=== PATIENT | male | born 1940 | race Caucasian/White ===

== ENCOUNTER 2016-05-04 13:05 | Inpatient (IN) | payer OTHER ==
[~2016-05-04] VITALS: Ht 182.9 cm; Wt 71.3 kg
[~2016-05-04 13:05] MED LIST: ADVAIR 250/501 DISK IH; ANTIVERT25 MG PO; CIPRO500 MG PO; FLAGYL500 MG PO; MIRALAX255 GM PO; NO HOME MEDS; NOHOMEMEDS; PERCOCET 5/31 TABLET PO; Proventil,Ventolin H IH; TYLENOL WITH C1 EACH PO; Zithromax PO; predniSONE PO
[2016-05-04 14:02] LABS: BASOPHIL COUNT 0.1 K/uL (0-0.1); EOSINOPHIL (%) 3.9 % (0-5); EOSINOPHIL COUNT 0.3 K/uL (0-0.3); HEMATOCRIT 43.1 % (38.0-50.0); IMMATURE GRANULOCYTE (%) 0.1 % (0.0-0.7); IMMATURE GRANULOCYTE COUNT 0.1 K/uL; LYMPHOCYTE COUNT 1.1 K/uL (1.0-2.8); MCHC 33.9 G/DL (30.0-36.0); MCV 88.5 FL (86-99); MEAN PLAT.VOLUME 9.8 uM^3 (9.0-12.4); MONOCYTE (%) 10.3 % (3-12); MONOCYTE COUNT 0.7 K/uL (0-0.8); PLATELET COUNT 181 K/uL (156-360); RBC DIS.WIDTH-CV 13.5 % (11.8-14.6); RBC DIS.WIDTH-SD 43.5 % (39-53); RED BLOOD COUNT 4.87 M/uL (4.00-5.50); WHITE BLOOD COUNT 7.1 K/uL (4.1-10.2)
[2016-05-04 14:11] LABS: CHLORIDE 106 mEq/L (99-109); POTASSIUM 4.2 mEq/L (3.7-5.4); SODIUM 137 mEq/L (136-147)
[2016-05-04 14:13] LABS: GLUCOSE 109 mg/dL (70-99)
[2016-05-04 14:14] LABS: ANION GAP 7 MEQ/L (2-14)
[2016-05-04 14:15] LABS: TOTAL BILIRUBIN 0.6 mg/dL (0.0-1.0)
[2016-05-04 14:17] LABS: ALKALINE PHOSPHATASE 76 IU/L (3-129); GFR ESTIMATE (CALCULATED) > 59 mL/min/
[2016-05-04 14:18] LABS: UREA NITROGEN (BUN) 12 mg/dL (9-23)
[2016-05-04 14:20] LABS: LIPASE 10 U/L (1.0-51.0)
[2016-05-04 14:23] LABS: TROP-I INTERPRETATION NEGATIVE; TROPONIN-I < 0.01 ng/mL (0.0-0.30)
[2016-05-04 18:08] LABS: ADD MIUA? NO; BILIRUBIN NEGATIVE; BLOOD NEGATIVE; COLOR YELLOW ((YELLOW)); GLUCOSE (STRIP) NEGATIVE; KETONES 5; LEUKOCYTES NEGATIVE; NITRITE NEGATIVE; PROTEIN (STRIP) NEGATIVE; UCUL ADDED? NO; UROBILINOGEN 0.2 MG/DL (0.2-1.0)
[2016-05-04 18:25] LABS: SPECIFIC GRAVITY 1.058 (1.000-1.030)
[2016-05-04] MEDS ORDERED: CILOSTAZOL50 MG PO (20:21)
[2016-05-05] VITALS (7 sets, daily range): BP systolic 128–158; BP diastolic 57–69
[2016-05-05 10:21] LABS: ADD MIUA? NO; BILIRUBIN NEGATIVE; BLOOD NEGATIVE; COLOR YELLOW ((YELLOW)); GLUCOSE (STRIP) NEGATIVE; KETONES 5; LEUKOCYTES NEGATIVE; NITRITE NEGATIVE; PROTEIN (STRIP) NEGATIVE; SPECIFIC GRAVITY 1.017 (1.000-1.030); UCUL ADDED? NO; UROBILINOGEN 0.2 MG/DL (0.2-1.0)
[2016-05-06 04:33] VITALS: BP 135/63
[2016-05-06 05:49] LABS: ANION GAP 9 MEQ/L (2-14); CHLORIDE 103 MEQ/L (99-109); GFR ESTIMATE (CALCULATED) > 59 mL/min/; GLUCOSE 102 mg/dL (70-99); SAMPLE HEMOLYSIS CHECK 0; SAMPLE ICTERIC CHECK 0; SAMPLE LIPEMIA CHECK 0; SODIUM 135 MEQ/L (136-147); UREA NITROGEN (BUN) 9 mg/dL (9-23)
[2016-05-06 06:13] LABS: BASOPHIL COUNT 0.1 K/uL (0-0.1); EOSINOPHIL (%) 2.6 % (0-5); EOSINOPHIL COUNT 0.3 K/uL (0-0.3); HEMATOCRIT 40.3 % (38.0-50.0); IMMATURE GRANULOCYTE (%) 0.2 % (0.0-0.7); LYMPHOCYTE COUNT 1.6 K/uL (1.0-2.8); MCH 29.1 PG (29.0-34.0); MCV 88.2 FL (86-99); MEAN PLAT.VOLUME 10.2 uM^3 (9.0-12.4); MONOCYTE (%) 12.6 % (3-12); MONOCYTE COUNT 1.2 K/uL (0-0.8); NEUTROPHIL (%) 67.1 % (45-76); NEUTROPHIL COUNT 6.4 K/uL (1.8-6.4); PLATELET COUNT 200 K/uL (156-360); RBC DIS.WIDTH-CV 13.4 % (11.8-14.6); RBC DIS.WIDTH-SD 43.2 % (39-53); RED BLOOD COUNT 4.57 M/uL (4.00-5.50)
[2016-05-06 06:15] LABS: WHITE BLOOD COUNT 9.5 K/uL (4.1-10.2)
[2016-05-06 07:50] VITALS: BP 142/72
[2016-05-06 10:20] VITALS: BP 142/72
[2016-05-06 16:05] VITALS: BP 119/57
[2016-05-06 20:05] VITALS: BP 123/59
[2016-05-06 23:20] VITALS: BP 124/71
[2016-05-07 04:34] VITALS: BP 101/62
[2016-05-07 04:44] LABS: HEMATOCRIT 39.1 % (38.0-50.0); MCH 29.7 PG (29.0-34.0); MCHC 34.5 G/DL (30.0-36.0); MCV 86.1 FL (86-99); MEAN PLAT.VOLUME 9.9 uM^3 (9.0-12.4); PLATELET COUNT 212 K/uL (156-360); RBC DIS.WIDTH-CV 13.1 % (11.8-14.6); RBC DIS.WIDTH-SD 40.3 % (39-53); RED BLOOD COUNT 4.54 M/uL (4.00-5.50); WHITE BLOOD COUNT 8.9 K/uL (4.1-10.2)
[2016-05-07 04:54] LABS: CHLORIDE 104 mEq/L (99-109); POTASSIUM 4.5 mEq/L (3.7-5.4); SODIUM 135 mEq/L (136-147)
[2016-05-07 04:56] LABS: GLUCOSE 103 mg/dL (70-99)
[2016-05-07 04:57] LABS: ANION GAP 9 MEQ/L (2-14)
[2016-05-07 05:00] LABS: GFR ESTIMATE (CALCULATED) > 59 mL/min/
[2016-05-07 05:01] LABS: UREA NITROGEN (BUN) 10 mg/dL (9-23)
[2016-05-07 07:58] VITALS: BP 134/72
[2016-05-07 16:30] VITALS: BP 124/60
[2016-05-07 20:12] VITALS: BP 117/55
[2016-05-07 23:44] VITALS: BP 119/56
[2016-05-08 04:42] VITALS: BP 124/58
[2016-05-08 08:30] VITALS: BP 171/72
[2016-05-08 11:30] VITALS: BP 142/63
[2016-05-08 15:13] VITALS: BP 118/56
[2016-05-08 21:03] VITALS: BP 116/59
[2016-05-09 00:11] VITALS: BP 109/56
[2016-05-09 08:30] VITALS: BP 152/110
[2016-05-09 11:22] LABS: C DIFF TOXIN NEGATIVE (NEGATIVE)
[2016-05-09 11:23] LABS: PROBE CHECK PASS; SPECIMEN PROCESSING CONTROL PASS
[2016-05-09] MEDS ORDERED: CLOPIDOGREL75 MG PO (11:52)
[2016-05-09] MEDS ORDERED: TRAMADOL HCL50 MG PO (11:52)
== END 2016-05-09 14:08 | disposition home or self-care (01) | DRG 815 ==
LOC: EME → EDBD 13:05 → EDOF 23:53 → 3EAST 23:53
PROVIDERS: Emergency Medicine; Hospitalist; Physician Assistant
PROC: B24BZZ4 Ultrasonography of Heart with Aorta, Transesophageal (ICD-10-PCS; principal; 2016-05-07)
DX: D73.5 Infarction of spleen (principal); I74.5 Embolism and thrombosis of iliac artery; K55.1 Chronic vascular disorders of intestine; J44.9 Chronic obstructive pulmonary disease, unspecified; K59.00 Constipation, unspecified; K57.90 Diverticulosis of intestine, part unspecified, without perforation or abscess without bleeding; R19.7 Diarrhea, unspecified; I34.1 Nonrheumatic mitral (valve) prolapse; I73.9 Peripheral vascular disease, unspecified; Z87.891 Personal history of nicotine dependence; I27.2 Other secondary pulmonary hypertension; I70.0 Atherosclerosis of aorta
CPT/HCPCS: 71275; 74177; 80048; 80053; 81003; 83605; 83690; 84484; 85025; 85027; 87040; 87493; 93005; 93306; 93312; 99281; 99285; J1644; J2250; J3010; J7030

== ENCOUNTER 2016-05-14 17:17 | Emergency (ER) | payer OTHER ==
[~2016-05-14] VITALS: Ht 182.9 cm; Wt 69.5 kg
[~2016-05-14 17:17] MED LIST changes: +CILOSTAZOL50 MG PO; +CLOPIDOGREL75 MG PO; +TRAMADOL HCL50 MG PO
[2016-05-14 17:44] LABS: HEMATOCRIT 45.2 % (38.0-50.0); MCH 29.7 PG (29.0-34.0); MCHC 33.4 G/DL (30.0-36.0); MEAN PLAT.VOLUME 9.4 uM^3 (9.0-12.4); RBC DIS.WIDTH-CV 12.8 % (11.8-14.6); RBC DIS.WIDTH-SD 42.1 % (39-53); RED BLOOD COUNT 5.08 M/uL (4.00-5.50); WHITE BLOOD COUNT 6.7 K/uL (4.1-10.2)
[2016-05-14 17:45] LABS: PLATELET COUNT 348 K/uL (156-360)
[2016-05-14 18:00] LABS: CHLORIDE 101 mEq/L (99-109); POTASSIUM 4.1 mEq/L (3.7-5.4); SODIUM 138 mEq/L (136-147)
[2016-05-14 18:02] LABS: GLUCOSE 114 mg/dL (70-99)
[2016-05-14 18:04] LABS: ANION GAP 13 MEQ/L (2-14); TOTAL BILIRUBIN 0.8 mg/dL (0.0-1.0)
[2016-05-14 18:06] LABS: ALKALINE PHOSPHATASE 139 IU/L (3-129); GFR ESTIMATE (CALCULATED) > 59 mL/min/
[2016-05-14 18:07] LABS: UREA NITROGEN (BUN) 10 mg/dL (9-23)
[2016-05-14 21:15] LABS: ADD MIUA? NO; BILIRUBIN NEGATIVE; BLOOD NEGATIVE; COLOR YELLOW ((YELLOW)); GLUCOSE (STRIP) NEGATIVE; KETONES 5; LEUKOCYTES NEGATIVE; NITRITE NEGATIVE; PROTEIN (STRIP) NEGATIVE; SPECIFIC GRAVITY 1.038 (1.000-1.030); UCUL ADDED? NO; UROBILINOGEN 0.2 MG/DL (0.2-1.0)
[2016-05-14] MEDS ORDERED: ZOFRAN ODT4 MG PO (21:59)
[2016-05-14] MEDS ORDERED: TRAMADOL HCL50 MG PO (21:59)
[2016-05-14 22:27] VITALS: BP 120/70
== END 2016-05-14 22:29 | disposition home or self-care (01) ==
LOC: EME 17:17
DX: R63.0 Anorexia (principal); R10.9 Unspecified abdominal pain; D73.5 Infarction of spleen; I74.5 Embolism and thrombosis of iliac artery; K57.90 Diverticulosis of intestine, part unspecified, without perforation or abscess without bleeding; Z87.891 Personal history of nicotine dependence; J44.9 Chronic obstructive pulmonary disease, unspecified; Z88.5 Allergy status to narcotic agent; Z88.8 Allergy status to other drugs, medicaments and biological substances
CPT/HCPCS: 74174; 80053; 81003; 85027; 99281; 99285; J7030; J7040

== ENCOUNTER 2016-07-10 10:31 | Observation (INO) | payer OTHER ==
[~2016-07-10] VITALS: Ht 180.3 cm; Wt 68.1 kg
[~2016-07-10 10:31] MED LIST changes: +ZOFRAN ODT4 MG PO
[2016-07-10 11:13] LABS: HEMATOCRIT 40.6 % (38.0-50.0); MCH 29.7 PG (29.0-34.0); MCHC 33.3 G/DL (30.0-36.0); MCV 89.4 FL (86-99); PLATELET COUNT 269 K/uL (156-360); RBC DIS.WIDTH-CV 14.3 % (11.8-14.6); RBC DIS.WIDTH-SD 46.8 % (39-53); RED BLOOD COUNT 4.54 M/uL (4.00-5.50); WHITE BLOOD COUNT 5.8 K/uL (4.1-10.2)
[2016-07-10 11:22] LABS: CHLORIDE 108 mEq/L (99-109); POTASSIUM 4.3 mEq/L (3.7-5.4); SODIUM 139 mEq/L (136-147)
[2016-07-10 11:23] LABS: GLUCOSE 90 mg/dL (70-99)
[2016-07-10 11:25] LABS: ANION GAP 7 MEQ/L (2-14)
[2016-07-10 11:27] LABS: GFR ESTIMATE (CALCULATED) > 59 mL/min/
[2016-07-10 11:28] LABS: UREA NITROGEN (BUN) 9 mg/dL (9-23)
[2016-07-10 11:34] LABS: TROP-I INTERPRETATION NEGATIVE; TROPONIN-I < 0.01 ng/mL (0.0-0.30)
[2016-07-10] MEDS ORDERED: ZANTAC150 MG PO (11:56)
[2016-07-10] MEDS ORDERED: CILOSTAZOL100 MG PO (11:56)
[2016-07-10 13:56] LABS: D-DIMER ELISA 0.46 mg/L FEU (< 0.57)
[2016-07-10 14:09] VITALS: BP 152/70
[2016-07-10 18:20] LABS: TROP-I INTERPRETATION NEGATIVE; TROPONIN-I < 0.01 ng/mL (0.0-0.30)
[2016-07-10 20:14] VITALS: BP 154/74
[2016-07-11 00:14] VITALS: BP 133/60
[2016-07-11 01:02] LABS: TROP-I INTERPRETATION NEGATIVE; TROPONIN-I < 0.01 ng/mL (0.0-0.30)
[2016-07-11 04:16] VITALS: BP 146/69
[2016-07-11 05:55] LABS: HEMATOCRIT 39.2 % (38.0-50.0); MCH 29.2 PG (29.0-34.0); MCHC 32.7 G/DL (30.0-36.0); MCV 89.5 FL (86-99); MEAN PLAT.VOLUME 9.4 uM^3 (9.0-12.4); PLATELET COUNT 260 K/uL (156-360); RBC DIS.WIDTH-CV 14.1 % (11.8-14.6); RBC DIS.WIDTH-SD 46.2 % (39-53); RED BLOOD COUNT 4.38 M/uL (4.00-5.50); WHITE BLOOD COUNT 6.2 K/uL (4.1-10.2)
[2016-07-11 05:58] LABS: ALKALINE PHOSPHATASE 76 IU/L (3-129); ANION GAP 10 MEQ/L (2-14); CHLORIDE 108 MEQ/L (99-109); GFR ESTIMATE (CALCULATED) > 59 mL/min/; GLUCOSE 96 mg/dL (70-99); POTASSIUM 3.9 MEQ/L (3.7-5.4); SAMPLE HEMOLYSIS CHECK 0; SAMPLE ICTERIC CHECK 0; SAMPLE LIPEMIA CHECK 0; SODIUM 139 MEQ/L (136-147); TOTAL BILIRUBIN 0.7 MG/DL (0.0-1.0); UREA NITROGEN (BUN) 10 mg/dL (9-23)
[2016-07-11 08:55] VITALS: BP 123/62
[2016-07-11 11:46] VITALS: BP 149/71
[2016-07-11] MEDS ORDERED: VENTOLIN HFA18 GM IH (13:24)
== END 2016-07-11 14:00 | disposition home or self-care (01) ==
LOC: EME 10:31 → EDOF 13:10 → 5WEST 13:51
PROVIDERS: Emergency Medicine; Nurse Practitioner Adult Health
DX: R07.89 Other chest pain (principal); R06.02 Shortness of breath; J44.9 Chronic obstructive pulmonary disease, unspecified; Z86.718 Personal history of other venous thrombosis and embolism; I34.8 Other nonrheumatic mitral valve disorders; Z87.891 Personal history of nicotine dependence; I73.9 Peripheral vascular disease, unspecified
CPT/HCPCS: 71020; 80048; 80053; 83880; 84484; 85027; 85379; 93005; 99281; 99285; G0378

== ENCOUNTER 2016-07-30 11:27 | Emergency (ER) | payer OTHER ==
[~2016-07-30] VITALS: Ht 180.3 cm; Wt 68.9 kg
[~2016-07-30 11:27] MED LIST changes: +CILOSTAZOL100 MG PO; +VENTOLIN HFA18 GM IH; +ZANTAC150 MG PO
[2016-07-30 13:12] LABS: CHLORIDE 108 mEq/L (99-109); HEMATOCRIT 46.5 % (38.0-50.0); MCHC 32.3 G/DL (30.0-36.0); MCV 89.8 FL (86-99); MEAN PLAT.VOLUME 9.3 uM^3 (9.0-12.4); PLATELET COUNT 250 K/uL (156-360); POTASSIUM 3.9 mEq/L (3.7-5.4); RBC DIS.WIDTH-CV 14.2 % (11.8-14.6); RBC DIS.WIDTH-SD 47.2 % (39-53); RED BLOOD COUNT 5.18 M/uL (4.00-5.50); SODIUM 141 mEq/L (136-147); WHITE BLOOD COUNT 5.9 K/uL (4.1-10.2)
[2016-07-30 13:15] LABS: GLUCOSE 95 mg/dL (70-99)
[2016-07-30 13:16] LABS: ANION GAP 10 MEQ/L (2-14)
[2016-07-30 13:17] LABS: ADD MIUA? NO; BILIRUBIN NEGATIVE; BLOOD NEGATIVE; COLOR YELLOW ((YELLOW)); GLUCOSE (STRIP) NEGATIVE; KETONES NEGATIVE; LEUKOCYTES NEGATIVE; NITRITE NEGATIVE; PROTEIN (STRIP) NEGATIVE; SPECIFIC GRAVITY 1.009 (1.000-1.030); UCUL ADDED? NO; UROBILINOGEN 0.2 MG/DL (0.2-1.0)
[2016-07-30 13:17] LABS: TOTAL BILIRUBIN 0.7 mg/dL (0.0-1.0)
[2016-07-30 13:18] LABS: ALKALINE PHOSPHATASE 91 IU/L (3-129); GFR ESTIMATE (CALCULATED) > 59 mL/min/
[2016-07-30 13:19] LABS: UREA NITROGEN (BUN) 9 mg/dL (9-23)
[2016-07-30 13:22] LABS: LIPASE 41 U/L (1.0-51.0)
[2016-07-30 15:31] VITALS: BP 160/87
== END 2016-07-30 16:27 | disposition home or self-care (01) ==
LOC: EME 11:27
DX: R10.32 Left lower quadrant pain (principal); Z86.718 Personal history of other venous thrombosis and embolism; Z79.01 Long term (current) use of anticoagulants; Z87.891 Personal history of nicotine dependence; Z88.5 Allergy status to narcotic agent; Z88.8 Allergy status to other drugs, medicaments and biological substances; J45.909 Unspecified asthma, uncomplicated
CPT/HCPCS: 74175; 80053; 81003; 83690; 85027; 99281; 99285

== ENCOUNTER 2017-03-25 09:27 | Emergency (ER) | payer OTHER ==
[~2017-03-25] VITALS: Ht 182.9 cm; Wt 67.6 kg
[2017-03-25] MEDS ORDERED: PERCOCET 5/31 TABLET PO (11:16)
[2017-03-25 11:32] VITALS: BP 117/55
== END 2017-03-25 11:32 | disposition home or self-care (01) ==
LOC: EME 09:27
DX: S20.219A Contusion of unspecified front wall of thorax, initial encounter (principal); W06.XXXA Fall from bed, initial encounter; Y92.003 Bedroom of unspecified non-institutional (private) residence as the place of occurrence of the external cause; J44.9 Chronic obstructive pulmonary disease, unspecified; Z79.02 Long term (current) use of antithrombotics/antiplatelets; Z87.891 Personal history of nicotine dependence; Z88.5 Allergy status to narcotic agent
CPT/HCPCS: 71046; 99281; 99283

== ENCOUNTER 2017-07-20 09:23 | Emergency (ER) | payer OTHER ==
[~2017-07-20] VITALS: Ht 180.3 cm; Wt 64.7 kg
[2017-07-20 09:52] LABS: BASOPHIL (%) 1.1 % (0-1); BASOPHIL COUNT 0.1 K/uL (0-0.1); EOSINOPHIL (%) 4.3 % (0-5); EOSINOPHIL COUNT 0.3 K/uL (0-0.3); HEMATOCRIT 42.4 % (38.0-50.0); HEMOGLOBIN 14.3 G/DL (12.5-16.6); IMMATURE GRANULOCYTE (%) 0.3 % (0.0-0.7); LYMPHOCYTE (%) 19.3 % (15-42); LYMPHOCYTE COUNT 1.3 K/uL (1.0-2.8); MCH 30.4 PG (29.0-34.0); MCHC 33.7 G/DL (30.0-36.0); MONOCYTE (%) 9.7 % (3-12); MONOCYTE COUNT 0.6 K/uL (0-0.8); NEUTROPHIL (%) 65.3 % (45-76); NEUTROPHIL COUNT 4.2 K/uL (1.8-6.4); PLATELET COUNT 231 K/uL (156-360); RBC DIS.WIDTH-CV 13.2 % (11.8-14.6); RBC DIS.WIDTH-SD 43.8 % (39-53); RED BLOOD COUNT 4.71 M/uL (4.00-5.50); WHITE BLOOD COUNT 6.5 K/uL (4.1-10.2)
[2017-07-20 10:03] LABS: CHLORIDE 106 mEq/L (99-109)
[2017-07-20 10:04] LABS: SODIUM 138 mEq/L (136-147)
[2017-07-20 10:05] LABS: GLUCOSE 101 mg/dL (70-99)
[2017-07-20 10:09] LABS: CREATININE 1.1 mg/dL (0.6-1.3); GFR ESTIMATE (CALCULATED) > 59 mL/min/ (58.99-99999)
[2017-07-20 10:10] LABS: UREA NITROGEN (BUN) 11 mg/dL (9-23)
[2017-07-20 10:18] LABS: TROP-I INTERPRETATION NEGATIVE; TROPONIN-I < 0.01 ng/mL (0.0-0.30)
[2017-07-20 12:41] LABS: TROP-I INTERPRETATION NEGATIVE; TROPONIN-I 0.02 ng/mL (0.0-0.30)
[2017-07-20 14:14] VITALS: BP 139/76
== END 2017-07-20 14:14 | disposition home or self-care (01) ==
LOC: EME 09:23
PROVIDERS: Emergency Medicine
DX: R07.89 Other chest pain (principal); J44.9 Chronic obstructive pulmonary disease, unspecified; Z87.891 Personal history of nicotine dependence; Z86.718 Personal history of other venous thrombosis and embolism; Z87.09 Personal history of other diseases of the respiratory system; Z87.19 Personal history of other diseases of the digestive system; Z88.5 Allergy status to narcotic agent; Z88.8 Allergy status to other drugs, medicaments and biological substances
CPT/HCPCS: 71045; 80048; 84484; 85025; 85610; 85730; 93005; 99281; 99284

== ENCOUNTER 2017-09-11 11:53 | Observation (INO) | payer OTHER ==
[~2017-09-11] VITALS: Ht 180.3 cm; Wt 63.3 kg
[2017-09-11 12:52] LABS: HEMATOCRIT 40.3 % (38.0-50.0); HEMOGLOBIN 13.6 G/DL (12.5-16.6); MCH 30.6 PG (29.0-34.0); MCHC 33.7 G/DL (30.0-36.0); MCV 90.6 FL (86-99); PLATELET COUNT 210 K/uL (156-360); RBC DIS.WIDTH-CV 13.2 % (11.8-14.6); RED BLOOD COUNT 4.45 M/uL (4.00-5.50); WHITE BLOOD COUNT 5.9 K/uL (4.1-10.2)
[2017-09-11 13:00] LABS: CHLORIDE 106 mEq/L (99-109); POTASSIUM 3.9 mEq/L (3.7-5.4); SODIUM 139 mEq/L (136-147)
[2017-09-11 13:02] LABS: GLUCOSE 101 mg/dL (70-99)
[2017-09-11 13:06] LABS: CREATININE 1.1 mg/dL (0.6-1.3); GFR ESTIMATE (CALCULATED) > 59 mL/min/ (58.99-99999)
[2017-09-11 13:07] LABS: UREA NITROGEN (BUN) 10 mg/dL (9-23)
[2017-09-11 13:11] LABS: TROP-I INTERPRETATION NEGATIVE; TROPONIN-I < 0.01 ng/mL (0.0-0.30)
[2017-09-11 13:41] LABS: INTER. NORMALIZED RATIO 1.1
[2017-09-11 13:44] LABS: PTT 30.5 SEC (25-37)
[2017-09-11] MEDS ORDERED: FLOMAX0.4 MG PO (15:45)
[2017-09-11] MEDS ORDERED: PLAVIX75 MG PO (15:45)
[2017-09-11] MEDS ORDERED: VENTOLIN HFA18 GM IH (15:45)
[2017-09-11] MEDS ORDERED: ALKA-SELTZER G1 EAC1 PO (15:46)
[2017-09-11] MEDS ORDERED: TYLENOL EXTRA500 MG PO (15:46)
[2017-09-11 16:49] LABS: LIPASE 9 U/L (1.0-51.0)
[2017-09-11 18:29] VITALS: BP 157/68
[2017-09-11 19:15] VITALS: BP 143/66
[2017-09-11 23:46] VITALS: BP 142/66
[2017-09-12 00:08] VITALS: BP 118/58
[2017-09-12 00:59] LABS: TROP-I INTERPRETATION NEGATIVE; TROPONIN-I < 0.01 ng/mL (0.0-0.30)
[2017-09-12 03:20] VITALS: BP 130/61
[2017-09-12 05:26] LABS: HEMATOCRIT 36.8 % (38.0-50.0); HEMOGLOBIN 12.1 G/DL (12.5-16.6); MCH 29.6 PG (29.0-34.0); MCHC 32.9 G/DL (30.0-36.0); PLATELET COUNT 199 K/uL (156-360); RBC DIS.WIDTH-CV 13.2 % (11.8-14.6); RBC DIS.WIDTH-SD 43.8 % (39-53); RED BLOOD COUNT 4.09 M/uL (4.00-5.50)
[2017-09-12 05:53] LABS: CHLORIDE 106 MEQ/L (99-109); CREATININE 0.9 MG/DL (0.6-1.3); GFR ESTIMATE (CALCULATED) > 59 mL/min/ (58.99-99999); GLUCOSE 87 mg/dL (70-99); POTASSIUM 3.9 MEQ/L (3.7-5.4); SODIUM 137 MEQ/L (136-147); UREA NITROGEN (BUN) 13 mg/dL (9-23)
[2017-09-12 05:57] LABS: TROP-I INTERPRETATION NEGATIVE; TROPONIN-I 0.01 ng/mL (0.0-0.30)
[2017-09-12 07:55] VITALS: BP 115/64
[2017-09-12 08:31] LABS: THYROTROPIN (TSH) 2.4 MIU/L (0.4-5.5)
[2017-09-12] MEDS ORDERED: ERYTHROMYC1 APPLICAT LEFT EYE (12:20)
[2017-09-12 12:30] VITALS: BP 132/78
== END 2017-09-12 14:32 | disposition home or self-care (01) ==
LOC: EME 11:53 → EDOF 15:41 → ENRESERV 15:43 → 4SOUTH 18:03
PROVIDERS: Emergency Medicine; Internal Medicine
DX: R07.89 Other chest pain (principal); K55.1 Chronic vascular disorders of intestine; I73.9 Peripheral vascular disease, unspecified; D73.5 Infarction of spleen; I34.1 Nonrheumatic mitral (valve) prolapse; J44.9 Chronic obstructive pulmonary disease, unspecified; Z87.891 Personal history of nicotine dependence; M54.9 Dorsalgia, unspecified; Z88.0 Allergy status to penicillin; Z88.5 Allergy status to narcotic agent; Z79.02 Long term (current) use of antithrombotics/antiplatelets; N40.0 Benign prostatic hyperplasia without lower urinary tract symptoms; Z82.49 Family history of ischemic heart disease and other diseases of the circulatory system
CPT/HCPCS: 71046; 71275; 72070; 80048; 83690; 84443; 84484; 85027; 85610; 85730; 93005; 94760; 94799; 99281; 99285; G0378; J1650; J7030